=== PATIENT | female | born 2000 | race Caucasian/White ===

== ENCOUNTER 2020-04-13 21:00 | Inpatient (IN) ==
[~2020-04-13 21:00] MED LIST: Famotidine 20 MG/2 ML VIAL IVP PRN; Lidocaine 1% 20 ML MDV INFILT PRN; Metoclopramide 10 MG/2 ML VIAL IVP PRN; Naloxone 0.4 MG/ML INJ IVP PRN; Ondansetron 4 MG/2 ML VIAL IVP PRN; Ringers Solution, Lactated 1,000 ML IVC SCH
[2020-04-13 21:51] LABS: Basophils # 0.1 K/mcL (0.0-0.2); Basophils % 0.6 %; Eosinophils # 0.1 K/mcL (0.0-0.6); Eosinophils % 0.6 %; Hematocrit 39.6 % (35.3-44.9); Hemoglobin 12.8 g/dL (11.5-15.4); Immature Granulocytes % 1.1 % (0-4); Lymphocytes # 2.1 K/mcL (0.6-4.6); Lymphocytes % 14.8 %; Mean Corpuscular HGB Conc 32.3 g/dL (31.6-35.5); Mean Corpuscular Hemoglobin 28.4 pg (28.0-33.3); Mean Corpuscular Volume 87.8 fL (83.0-100.0); Mean Platelet Volume 9.9 fL (9.4-12.4); Monocytes # 0.9 K/mcL (0.0-1.3); Monocytes % 6.2 %; Neutrophils # 11.1 K/mcL (1.6-8.9); Platelet Count 277 K/mcL (140-400); Red Blood Count 4.51 M/mcL (3.82-4.97); Red Cell Distribution Width 13.8 % (11.5-14.5); Segmented Neutrophils % 76.7 %; White Blood Count 14.4 K/mcL (4.3-11.1)
[2020-04-13] MEDS ORDERED: *HR* FentaNYL (PF) 100 MCG/2 ML VIAL EP ONE (21:56)
[2020-04-13] MEDS ORDERED: EPHEDrine 50 MG/ML VIAL IVP PRN (21:56)
[2020-04-13] MEDS ORDERED: Ropivacaine/PF 0.2% 20 ML VIAL EP ONE (21:56)
[2020-04-13 22:00] LABS: Amphetamine Screen,Urine Negative ng/mL (Cutoff=1000); Barbiturate Screen,Urine Negative ng/mL (Cutoff=200); Benzodiazepines Screen,Urine Negative ng/mL (Cutoff=200); Cannabinoid Screen,Urine Negative ng/mL (Cutoff = 50); Cocaine Screen,Urine Negative ng/mL (Cutoff= 300); Opiate Screen,Urine Negative ng/mL (Cutoff=300); Phencyclidine Screen,Urine Negative ng/mL (Cutoff=25)
[2020-04-13] MEDS ORDERED: Epidural Premix (fent/bupiv) 110 ML EP SCH (22:00)
[2020-04-13] MEDS ORDERED: *HR* FentaNYL (PF) 100 MCG/2 ML VIAL ONE (22:02)
[2020-04-13] MEDS ORDERED: Ropivacaine/PF 0.2% 20 ML VIAL ONE (22:02)
[2020-04-13] MEDS ORDERED: Oxytocin 20 units/ LR 1000 mL 20 UNIT/1,000 ML BAG IVC SCH (22:30)
[2020-04-13] MEDS: *HR* FentaNYL (PF) 100 MCG/2 ML VIAL IVP PRN (23:44)
[2020-04-14] MEDS: *HR* FentaNYL (PF) 100 MCG/2 ML VIAL IVP PRN (01:10)
[2020-04-14] MEDS: Prenatal Vit/FA 1 EACH TABLET PO SCH (09:00)
[2020-04-14] MEDS ORDERED: Measles/Mumps/Rubella Vacc 0.5 ML VIAL SQ PRN (09:39)
[2020-04-14] MEDS ORDERED: BPM PO PRN (09:39)
[2020-04-14] MEDS ORDERED: Acetaminophen 325 MG TABLET PO PRN (09:39)
[2020-04-14] MEDS ORDERED: [UNRECOGNIZED DRUG - OTHER] PO PRN (09:39)
[2020-04-14] MEDS ORDERED: D METHORPHAN HB PO PRN (09:39)
[2020-04-14] MEDS ORDERED: P EPD HCL PO PRN (09:39)
[2020-04-14] MEDS ORDERED: Oxytocin 20 units/ LR 1000 mL 20 UNIT/1,000 ML BAG IVC SCH (09:39)
[2020-04-14] MEDS ORDERED: Rho Immune Globulin 1,500 UNIT SYRINGE IM PRN (09:39)
[2020-04-14] MEDS: Cefdinir 300 MG CAPSULE PO SCH ×2 (12:32→15:42)
[2020-04-14] MEDS: Ibuprofen 600 MG TABLET PO PRN (15:42)
[2020-04-15] MEDS: Ibuprofen 600 MG TABLET PO PRN (04:04)
[2020-04-15] MEDS: Prenatal Vit/FA 1 EACH TABLET PO SCH (07:55)
[2020-04-15 08:17] VITALS: BP 97/64
[2020-04-15 08:33] LABS: Basophils # 0.1 K/mcL (0.0-0.2); Basophils % 0.9 %; Eosinophils # 0.2 K/mcL (0.0-0.6); Eosinophils % 1.4 %; Hematocrit 35.4 % (35.3-44.9); Hemoglobin 11.4 g/dL (11.5-15.4); Immature Granulocytes % 1.6 % (0-4); Lymphocytes # 1.2 K/mcL (0.6-4.6); Lymphocytes % 10.3 %; Mean Corpuscular HGB Conc 32.2 g/dL (31.6-35.5); Mean Corpuscular Hemoglobin 28.8 pg (28.0-33.3); Mean Corpuscular Volume 89.4 fL (83.0-100.0); Mean Platelet Volume 10.1 fL (9.4-12.4); Monocytes # 0.8 K/mcL (0.0-1.3); Monocytes % 6.9 %; Neutrophils # 9.2 K/mcL (1.6-8.9); Platelet Count 220 K/mcL (140-400); Red Blood Count 3.96 M/mcL (3.82-4.97); Red Cell Distribution Width 13.9 % (11.5-14.5); Segmented Neutrophils % 78.9 %; White Blood Count 11.7 K/mcL (4.3-11.1)
== END 2020-04-15 13:05 | disposition home or self-care (01) | DRG 807 ==
LOC: 1NENULAB → 1NENUOBS 04-14 09:16
PROVIDERS: ADMIT Student in an Organized Health Care Education/Training Program; ATTEND Student in an Organized Health Care Education/Training Program